=== PATIENT | male | born 1965 | race Caucasian/White ===

== ENCOUNTER 2017-11-18 10:24 | Day surgery (SDC) | payer OTHER ==
[~2017-11-18 10:24] MED LIST: ACUPRIL; CIPRO500 MG PO; GLUCOPHAGE XR500 MG PO; TRAMADOL HCL-AP1 TAB PO; TRIPLE ANTIBIO3.5 GM OP
[2017-11-18] MEDS ORDERED: ULTRACET PO (14:59)
== END 2017-11-18 17:10 | disposition home or self-care (01) ==
LOC: CIR.AMB 10:24
DX: N47.7 Other inflammatory diseases of prepuce (principal)